=== PATIENT | male | born 1945 | race Caucasian/White ===

== ENCOUNTER 2018-09-19 15:00 | Inpatient (IN) | payer MEDICARE ==
[~2018-09-19] VITALS: Ht 182.9 cm; Wt 111.5 kg
[~2018-09-19 15:00] MED LIST: CARV6.25 PO; CEPH500 PO; CITA20 PO; ENAL5 PO; GABA100 PO; HYDACE5 PO; PRAV20 PO; PROB500 PO; Prilosec Otc20 MG PO; SPIR25 PO; TIOT18 INH
[2018-09-19 15:49] LABS: BASOPHILS ABSOLUTE AUTO 0.05 K/mm3 (0.00-0.23); BASOPHILS PERCENT AUTO 1 % (0-2); EOSINOPHILS ABSOLUTE AUTO 0.02 K/mm3 (0.00-0.68); EOSINOPHILS PERCENT AUTO 0 % (0-6); Hematocrit 50.9 % (37.0-53.0); Hemoglobin 16.9 g/dL (13.5-17.5); IMMATURE GRAN ABSOLUTE AUTO 0.05 K/mm3 (0.00-0.10); IMMATURE GRAN PERCENT AUTO 1 % (0-1); LYMPHOCYTES PERCENT AUTO 26 % (21-46); MONOCYTES PERCENT AUTO 13 % (4-13); Mean Corpuscular HGB 34.4 pg (26.0-34.0); Mean Corpuscular HGB Conc 33.2 g/dL (31.5-36.5); Mean Corpuscular Volume 104 fL (80-100); Mean Platelet Volume 9.9 fL (9.1-12.4); NEUTROPHILS ABSOLUTE AUTO 5.75 K/mm3 (1.96-9.15); NEUTROPHILS PERCENT AUTO 60 % (41-73); Platelet Count 516 K/mm3 (150-400); RDW Coefficient Variation 12.6 % (11.7-14.2); RDW Standard Deviation 48.4 fL (35.1-46.3); Red Blood Cell Count 4.91 M/mm3 (4.30-5.90); White Blood Cell Count 9.67 K/mm3 (4.00-11.30)
[2018-09-19 16:12] LABS: Albumin, Blood 4.1 g/dL (3.4-5.0); Albumin/Globulin Ratio 0.7 (0.8-1.8); Bilirubin, Total 0.6 mg/dL (0.1-1.0); Bun/Creatinine Ratio 11.5 (12.0-20.0); Creatinine, Blood 2.88 mg/dL (0.60-1.20); Globulin, Blood 5.9 g/dL (2.2-4.0); Potassium, Blood 3.8 mmol/L (3.5-5.5)
[2018-09-19] MEDS ORDERED: ATOR80 PO (17:53)
[2018-09-19 18:51] LABS: Base Excess Venous -10.2 mmol/L; Bicarbonate Venous 16.3 mmol/L (24.0-30.0); PCO2 Venous 37.2 mmHg (38-42); PO2 Venous 44.4 mmHg (38-42); pH Blood Venous 7.26 (7.34-7.37)
[2018-09-19 19:35] LABS: Campylobacter Sp Not Detected (NOT DETECT)
[2018-09-19 19:36] LABS: Uric Acid, Blood 9.8 mg/dL (3.5-7.2)
[2018-09-19 19:36] LABS: Adenovirus F 40/41 Not Detected (NOT DETECT); Astrovirus Not Detected (NOT DETECT); Cryptosporidium Not Detected (NOT DETECT); Cyclospora Cayetanensis Not Detected (NOT DETECT); E. Coli O157 Not Detected (NOT DETECT); Entamoeba Histolytica Not Detected (NOT DETECT); Enteroaggregative E. coli-EAEC Not Detected (NOT DETECT); Enteropathogenic E. coli-EPEC Not Detected (NOT DETECT); Enterotoxigenic E. coli-ETEC Not Detected (NOT DETECT); Giardia Lamblia Not Detected (NOT DETECT); Norovirus GI/GII Not Detected (NOT DETECT); Plesiomonas Shigelloides Not Detected (NOT DETECT); Rotavirus A Detected (NOT DETECT); Salmonella Sp Not Detected (NOT DETECT); Sapovirus Not Detected (NOT DETECT); Shiga Toxin-prod E. coli-STEC Not Detected (NOT DETECT); Shigella/Enteroin E. coli-EIEC Not Detected (NOT DETECT); Vibrio Cholerae Not Detected (NOT DETECT); Vibrio Sp Not Detected (NOT DETECT); Yersinia Enterocolitica Not Detected (NOT DETECT)
[2018-09-19 19:39] LABS: Albumin, Blood 3.1 g/dL (3.4-5.0); Albumin/Globulin Ratio 0.7 (0.8-1.8); Bilirubin, Total 0.4 mg/dL (0.1-1.0); Bun/Creatinine Ratio 11.7 (12.0-20.0); Calcium, Blood 8.7 mg/dL (8.5-10.1); Creatinine, Blood 2.81 mg/dL (0.60-1.20); Globulin, Blood 4.6 g/dL (2.2-4.0); Potassium, Blood 3.5 mmol/L (3.5-5.5)
[2018-09-19 20:49] LABS: Total Protein, Blood 7.7 g/dL (6.4-8.2)
[2018-09-19 22:17] LABS: Source, Urine Clean Catch
[2018-09-19 22:22] LABS: Blood, Urine Neg (Neg); Glucose Qualitative, Urine Neg (Neg); Ketones, Urine 1+ (Neg); Leukocyte Esterase, Urine 1+ (Neg); Nitrite, Urine Neg (Neg); Protein, Urine 2+ (Neg); Specific Gravity, Urine 1.025 (1.003-1.022); Urobilinogen, Urine NORM (Normal)
[2018-09-19 22:30] LABS: Appearance, Urine Hazy (Clear); Bilirubin, Urine 1+ (Neg); Color, Urine Yellow (P-Yellow)
[2018-09-19 22:31] LABS: Amorphous Mod (0-Heavy); Bacteria Few /hpf; Mucus Heavy (0-Heavy); Red Blood Cells, Urine Not Seen /hpf (0-2); Squamous Epithelial Cells Rare /hpf (Few)
--- NOTE | 2018-09-19 23:00 | NUR ---
ED ADMIT AT 2109 . STEPPED OFF GUERNEY AND OVER TO [facility] . DENIES DIZZINESS. AND NO REPORT OF PAIN. 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 FLUID CHALLENGES CONT PER ORDER. CT ABD PEVIS VIA W/C . TOLERATED. ONLY ARMS AND HANDS TREMOROUS..REPORTS NORMAL FOR HIM BUT IT SEEMS WORSE NOW. REPORTS HE SOMETIMES TAKES ANTI ANXIETY MED AND THE DRINKING HELPS TOO. NOT BEER SINCE 09-15 REVIEWED HOW STAFF WILL OBSERVE FOR WITHDRAWAL/DT'S..EXPRESSES UNDERSTANDING.
[2018-09-20] MEDS ORDERED: LO-DOSE ASPIRIN81 MG PO (00:06)
[2018-09-20] MEDS ORDERED: CHOL10002 PO (00:08)
[2018-09-20] MEDS ORDERED: UBID10 (00:09)
[2018-09-20] MEDS ORDERED: UBID10 PO (00:10)
[2018-09-20] MEDS ORDERED: DOCU100 PO (00:11)
[2018-09-20] MEDS ORDERED: COMBIVENT RESPIM4 GM (00:13)
[2018-09-20] MEDS ORDERED: Pravachol40 MG PO (00:18)
[2018-09-20] MEDS ORDERED: SPIR25 PO (00:20)
[2018-09-20] MEDS ORDERED: ASCO500 PO (00:21)
--- NOTE | 2018-09-20 05:36 | NUR ---
SHIFT SUMMARY. NO PAIN . H2O TOLERATED AND NO REPORT OF NAUSEA OR DIZZINESS. INFORMED TO GET UP VERY SLOWLY. DIARRHEA SLOWING DOWN . ONLY 3 SINCE ADMIT. LUNGS REMAIN CLEAR. NO RESP ISSUES. NO CHANGE IN MILD HAND AND ARM TREMORS. ONLY WHEN AWAKE AND HOLDING URINAL OR USING HANDS TO HOLD CUP/ DOZING ON AND OFF . NO OTHER CLEAR FLUIDS DESIRED TONIGHT. VS WNL LOW URINE OUTPUT..NO SIGN OF BLADDER RETENTION..SR FIRST DEGREE. 80 RATE.CIWA 4 ALL NOC
[2018-09-20 05:41] LABS: Bun/Creatinine Ratio 15.9 (12.0-20.0); Calcium, Blood 7.9 mg/dL (8.5-10.1); Creatinine, Blood 2.14 mg/dL (0.60-1.20); Potassium, Blood 3.2 mmol/L (3.5-5.5)
--- NOTE | 2018-09-20 12:10 | NUR ---
VS STABLE, PT DOING WELL, NO COMPLAINTS. EATING LUNCH AT THIS TIME. CALL LIGHT IN REACH.
[2018-09-20] MEDS ORDERED: ATOR80 PO (12:42)
[2018-09-20] MEDS ORDERED: THERA1 EACH PO (12:44)
[2018-09-20] MEDS ORDERED: GLUC500 PO (12:48)
--- NOTE | 2018-09-20 17:53 | NUR ---
pt continues to have watery diarrhea, yellow in color. no complaints or further changes this shift, will replace his iv as it is in his ac and occludes regularly. call light in reach.
--- NOTE | 2018-09-20 18:15 | NUR ---
placed 20g iv to right fa with good blood return, flushes well. pt tolerated well.
--- NOTE | 2018-09-21 04:57 | NUR ---
SHIFT SUMMARY PT A&O X4, IONE. LUNG SOUNDS CLEAR T/O. SPO2 > 92% ON RA. MONITOR SHOWS SR W/ 1ST DEGREE BLOCK, HR 70'S. 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 CIWA OF 4 W/ PT REPORT OF LAST DRINK BEING LAST WEDNESDAY, DRINKING 5-6 BEERS A DAY. PT CONTINUES TO HAVE YELLOW, LIQUID BM'S THIS SHIFT. IMODIUM GIVEN PER EMAR X1 THIS SHIFT. LR GTT INFUSING PER ORDERS. PT SBA TO BSC. WILL CONTINUE TO MONITOR AND PROVIDE CARE UNTIL REPORT OFF TO DAY SHIFT RN.
[2018-09-21 05:29] LABS: Anion Gap 12 mmol/L (6-16); Blood Urea Nitrogen 22 mg/dL (8-24); Bun/Creatinine Ratio 19.6 (12.0-20.0); CO2, Blood 16 mmol/L (21-32); Chloride, Blood 107 mmol/L (98-108); Creatinine, Blood 1.12 mg/dL (0.60-1.20); Glomerular Filtration Rate >60 (60-); Glucose, Blood 95 mg/dL (70-99); Potassium, Blood 3.1 mmol/L (3.5-5.5); Sodium, Blood 135 mmol/L (136-145)
--- NOTE | 2018-09-21 09:00 | NUR ---
ASSUMED CARE PT ALERT AND ORIENTED. VS STABLE. PT SITTING UP IN BED WITH BREATHING EVEN AND UNLABORED. 02 SATS >92% ON RA. PT DENIES ANY PAIN. HR IN THE 70'S PER MONITOR WITH A FIRST DEGREE AV BLOCK. PT ABLE TO TRANSFER TO BSC NEEDED. PT HAVING FREQUENT LIQUID YELLOW BM. DR. LORA IN TO SEE PT THIS AM WITH ORDERS FOR EVALUATION BY PT AND OT AND THEN DISCHARGE. WILL CONTINUE TO MONITOR.
[2018-09-21] MEDS ORDERED: Anti-Diarrheal2 MG PO (11:25)
[2018-09-21] MEDS ORDERED: OXYM.05NI (11:27)
--- NOTE | 2018-09-21 14:40 | NUR ---
DISCHARGE INSTRUCTIONS PROVIDED. ALL QUESTIONS ANSWERED. NEW MEDICATIONS INSTRUCTIONS PROVIDED. ALL QUESTIONS ANSWERED. IV REMOVED AND INTACT. PT TAKEN OUT BY WHEELCHAIR WITH FAMILY MEMBER.
== END 2018-09-21 14:35 | disposition home or self-care (01) | DRG 683 ==
LOC: ER 15:00 → PCU 18:28 → ER 21:00 → PCU 21:22
PROVIDERS: Internal Medicine; Nurse Practitioner Acute Care; Physician Assistant; ADMIT Internal Medicine
DX: N17.9 Acute kidney failure, unspecified (principal); A08.0 Rotaviral enteritis; E87.1 Hypo-osmolality and hyponatremia; E87.2 Acidosis; I10 Essential (primary) hypertension; Z95.1 Presence of aortocoronary bypass graft; I25.10 Atherosclerotic heart disease of native coronary artery without angina pectoris; E86.0 Dehydration; J44.9 Chronic obstructive pulmonary disease, unspecified; M10.9 Gout, unspecified; F41.1 Generalized anxiety disorder; Z90.49 Acquired absence of other specified parts of digestive tract; Z90.81 Acquired absence of spleen; F10.20 Alcohol dependence, uncomplicated; E87.6 Hypokalemia
CPT/HCPCS: 36415; 51798; 74176; 80048; 80053; 81001; 82550; 82803; 83605; 83690; 83735; 84300; 84550; 85025; 87086; 87507; 93005; 93010; 94640; 94760; 96361; 96365; 97116; 97161; 97530; 99285-25; J1650; J3475; J7030; J7120